=== PATIENT | female | born 1955 | race African-American/Black ===

== ENCOUNTER 2019-09-04 18:34 | Inpatient (IN) | payer MEDICAID ==
[~2019-09-04] VITALS: Ht 177.8 cm; Wt 33.6 kg
[2019-09-04] MEDS ORDERED: SODIUM CHLORIDE 0.9% 1,000 ML IV ONE (19:17)
[2019-09-04 20:10] LABS: BASOPHILS % 0.7 % (0.0-2.0); EOSINOPHILS % 0.6 % (0.0-5.0); HEMATOCRIT. 35.4 % (36.0-48.0); HEMOGLOBIN. 12.1 g/dL (12.0-16.0); LYMPHOCYTES % 48.3 % (20.0-50.0); MEAN CORPUSCULAR HEMOGLOBIN 31.2 pg (28.0-32.0); MEAN CORPUSCULAR VOLUME 90.8 fL (81.0-99.0); MEAN PLATELET VOLUME 10.3 fl (7.4-10.4); NEUTROPHILS % 42.4 % (40.0-76.0); PLATELET 105 x1000/uL (130-400); RED BLOOD CELL COUNT 3.89 mill/uL (4.2-5.4); RED CELL DISTRIBUTION WIDTH 16.3 % (11.6-14.6)
[2019-09-04 20:16] LABS: INR 1.1; PROTHROMBIN TIME 11.7 sec (9.6-11.0)
[2019-09-04 20:19] LABS: CHLORIDE 112 mEq/L (98-107)
[2019-09-04 20:23] LABS: ETHANOL BLOOD < 10 mg/dL
[2019-09-04 21:35] LABS: CLARITY URINE CLEAR (CLEAR); COLOR URINE YELLOW (YELLOW); KETONES URINE TRACE (NEGATIVE); LEUKOCYTE ESTERASE URINE NEGATIVE (NEGATIVE); NITRITE URINE NEGATIVE (NEGATIVE); OCCULT BLOOD URINE NEGATIVE (NEGATIVE); PH URINE 5.5 (4.5-8.0); PROTEIN URINE NEGATIVE (NEGATIVE); SPECIFIC GRAVITY URINE 1.024 (1.005-1.030)
[2019-09-04 21:54] LABS: *AMPHETAMINES SCREEN URINE NEGATIVE (NEGATIVE); *BARBITURATES SCREEN URINE NEGATIVE (NEGATIVE); *BENZODIAZEPINES SCREEN URINE NEGATIVE (NEGATIVE); *COCAINE SCREEN URINE NEGATIVE (NEGATIVE); METHADONE URINE SCREEN NEGATIVE (NEGATIVE); OPIATES URINE SCREEN NEGATIVE (NEGATIVE)
[2019-09-04 21:55] LABS: CANNABINOID URINE SCREEN NEGATIVE (NEGATIVE); PHENCYCLIDINE URINE SCREEN NEGATIVE (NEGATIVE)
[2019-09-04] MEDS ORDERED: DEXT 5%/0.45% NACL 1000ML 1,000 ML IV SCH (22:32)
[2019-09-04] MEDS ORDERED: ONDANSETRON HCL 4MG/2ML INJ IV PRN (22:45)
[2019-09-04] MEDS ORDERED: GUAIFENESIN 200MG/10ML SUGAR FREE UDC PO PRN (22:45)
[2019-09-04] MEDS ORDERED: HYDROCODONE/ACETAMINOPHEN 10/325MG TABLET PO PRN (22:45)
[2019-09-04] MEDS ORDERED: MAGNESIUM/ALUMINUM HYDROXIDE/SIMETHICONE 30ML UDC PO PRN (22:45)
[2019-09-04] MEDS ORDERED: DIPHENHYDRAMINE 50MG/ML VIAL IV PRN (22:45)
[2019-09-04] MEDS ORDERED: CLONIDINE 0.1MG TABLET PO PRN (22:45)
[2019-09-04] MEDS ORDERED: IPRATROPIUM/ALBUTEROL 0.5-3(2.5)MG/3ML NEB HHN PRN (22:45)
[2019-09-04] MEDS ORDERED: ACETAMINOPHEN 325MG TABLET PO PRN (22:45)
[2019-09-04] MEDS ORDERED: DOCUSATE SODIUM 100MG CAPSULE PO PRN (22:45)
[2019-09-04] MEDS ORDERED: LORAZEPAM 2MG/ML CPJ IV PRN ×2 (22:45)
[2019-09-04] MEDS ORDERED: MORPHINE SULFATE 2 MG/ML CPJ (NOT FOR IM USE) IV PRN (22:45)
[2019-09-04] MEDS ORDERED: HYDRALAZINE 20MG/ML VIAL IV PRN (22:45)
[2019-09-04] MEDS: LEVETIRACETAM 500MG PREMIX 100 ML IV SCH (23:05)
[2019-09-05 01:21] VITALS: BP 95/59
[2019-09-05 04:00] VITALS: BP 112/56
[2019-09-05] MEDS: SODIUM CHLORIDE 0.9% INJ 3ML FLUSH IVF SCH ×3 (05:15→21:11)
[2019-09-05 06:52] LABS: BASOPHILS % 0.6 % (0.0-2.0); EOSINOPHILS % 1.3 % (0.0-5.0); HEMOGLOBIN. 11.4 g/dL (12.0-16.0); MEAN CORPUSCULAR HEMOGLOBIN 31.3 pg (28.0-32.0); MEAN PLATELET VOLUME 11.4 fl (7.4-10.4); MONOCYTES % 10.1 % (2.0-8.0); PLATELET 106 x1000/uL (130-400); RED BLOOD CELL COUNT 3.63 mill/uL (4.2-5.4); RED CELL DISTRIBUTION WIDTH 16.2 % (11.6-14.6)
[2019-09-05 07:59] LABS: CHLORIDE 112 mEq/L (98-107)
[2019-09-05 08:00] VITALS: BP 125/62
[2019-09-05 08:10] LABS: CREATINE KINASE 208 IU/L (26-192)
[2019-09-05] MEDS: LEVETIRACETAM 500MG PREMIX 100 ML IV SCH ×2 (09:18→21:11)
[2019-09-05] MEDS: ENOXAPARIN 40MG/0.4ML SYR SUBCUT SCH (09:19)
[2019-09-05] MEDS ORDERED: PNEUMOCOCCAL 23-VAL P-SAC VAC 0.5 ML IM ONE (12:00)
[2019-09-05 12:24] VITALS: BP_SYST 126; BP_SYST 138; BP_DIAS 62; BP_DIAS 90
[2019-09-05 15:33] VITALS: BP 115/57
[2019-09-05 16:11] LABS: T4 FREE 1.18 ng/dL (0.76-1.46)
[2019-09-05 16:12] LABS: CREATINE KINASE 203 IU/L (26-192)
[2019-09-05 16:13] LABS: CREATINE KINASE MB FRACTION 1.5 ng/mL (0.5-3.6)
[2019-09-05 20:00] VITALS: BP 107/60
[2019-09-06 04:00] VITALS: BP 123/63
[2019-09-06] MEDS: SODIUM CHLORIDE 0.9% INJ 3ML FLUSH IVF SCH ×3 (06:34→20:31)
[2019-09-06 07:01] LABS: CHLORIDE 111 mEq/L (98-107)
[2019-09-06 07:09] LABS: BASOPHILS % 0.7 % (0.0-2.0); EOSINOPHILS % 1.7 % (0.0-5.0); HEMATOCRIT. 36.3 % (36.0-48.0); HEMOGLOBIN. 12.3 g/dL (12.0-16.0); LYMPHOCYTES % 56.8 % (20.0-50.0); MEAN CORPUSCULAR HEMOGLOBIN 31.2 pg (28.0-32.0); MEAN CORPUSCULAR VOLUME 91.8 fL (81.0-99.0); MEAN PLATELET VOLUME 10.9 fl (7.4-10.4); MONOCYTES % 9.8 % (2.0-8.0); PLATELET 92 x1000/uL (130-400); RED BLOOD CELL COUNT 3.96 mill/uL (4.2-5.4); RED CELL DISTRIBUTION WIDTH 16.4 % (11.6-14.6)
[2019-09-06 07:11] LABS: VITAMIN B12 SERUM 782 pg/mL (211-911)
[2019-09-06 08:00] VITALS: BP 96/57
[2019-09-06] MEDS: LEVETIRACETAM 500MG PREMIX 100 ML IV SCH (10:45)
[2019-09-06] MEDS: ENOXAPARIN 40MG/0.4ML SYR SUBCUT SCH (10:46)
[2019-09-06 12:00] VITALS: BP 161/83
[2019-09-06 16:00] VITALS: BP 120/65
[2019-09-06 20:00] VITALS: BP 146/66
[2019-09-06] MEDS: LEVETIRACETAM 500MG TABLET PO SCH (20:31)
[2019-09-07] VITALS: BP 132/74
[2019-09-07 04:00] VITALS: BP 123/63
[2019-09-07] MEDS: SODIUM CHLORIDE 0.9% INJ 3ML FLUSH IVF SCH (05:34)
[2019-09-07 08:00] VITALS: BP 106/68
[2019-09-07] MEDS ORDERED: ENOXAPARIN 30MG/0.3ML SYR SUBCUT SCH (09:00)
[2019-09-07] MEDS: LEVETIRACETAM 500MG TABLET PO SCH (09:11)
[2019-09-07 12:00] VITALS: BP 96/53
[2019-09-07 14:09] VITALS: BP 96/53
== END 2019-09-07 15:20 | disposition home or self-care (01) | DRG 347 ==
LOC: ER 18:34 → MICUSO 22:16 → 6WST 09-05 00:35
PROVIDERS: ADMIT Internal Medicine; ATTEND Internal Medicine
DX: M48.02 Spinal stenosis, cervical region (principal); D69.6 Thrombocytopenia, unspecified; G93.89 Other specified disorders of brain; G40.909 Epilepsy, unspecified, not intractable, without status epilepticus; G25.2 Other specified forms of tremor; F17.210 Nicotine dependence, cigarettes, uncomplicated; R00.1 Bradycardia, unspecified; I25.10 Atherosclerotic heart disease of native coronary artery without angina pectoris; M47.892 Other spondylosis, cervical region; I25.2 Old myocardial infarction; Z86.73 Personal history of transient ischemic attack (TIA), and cerebral infarction without residual deficits
CPT/HCPCS: 36415; 70551; 71045; 72141; 76536; 80048; 80053; 80061; 80305; 80320; 81003; 82550; 82553; 82607; 83036; 83735; 83880; 84439; 84443; 84484; 85025; 85379; 93005; 93306; 93970; 96365; 97116; 97162; 99291; J1650; J1953; J7030; G0480

== ENCOUNTER 2022-03-02 13:02 | Emergency (ER) | payer MEDICAID, OTHER ==
[~2022-03-02] VITALS: Ht 165.1 cm; Wt 50.0 kg
[2022-03-02 14:23] LABS: BASOPHILS % 0.6 % (0.0-2.0); EOSINOPHILS % 0.5 % (0.0-5.0); HEMATOCRIT. 36.6 % (36.0-48.0); HEMOGLOBIN. 12.2 g/dL (12.0-16.0); LYMPHOCYTES % 31.3 % (20.0-50.0); MEAN CORPUSCULAR HEMOGLOBIN 30.7 pg (28.0-32.0); MEAN CORPUSCULAR VOLUME 92.5 fL (81.0-99.0); MEAN PLATELET VOLUME 10.8 fl (7.4-10.4); MONOCYTES % 8.4 % (2.0-8.0); NEUTROPHILS % 59.2 % (40.0-76.0); PLATELET 152 x1000/uL (130-400); RED BLOOD CELL COUNT 3.95 mill/uL (4.2-5.4); RED CELL DISTRIBUTION WIDTH 16.7 % (11.6-14.6)
[2022-03-02 14:30] LABS: PROTHROMBIN TIME 10.8 sec (9.6-11.0)
[2022-03-02 14:33] LABS: CHLORIDE 111 mEq/L (98-107)
[2022-03-02] MEDS ORDERED: IOHEXOL-350 100 ML BOTTLE ONE (15:39)
[2022-03-02 20:37] VITALS: BP 110/60
== END 2022-03-02 22:02 | disposition short-term general hospital (02) ==
LOC: ER 13:20 → CANBEDREQ 16:13 → ER 22:02
DX: R25.1 Tremor, unspecified (principal); Z86.73 Personal history of transient ischemic attack (TIA), and cerebral infarction without residual deficits; Z20.822 Contact with and (suspected) exposure to COVID-19
CPT/HCPCS: 36415; 70450; 70496; 80053; 82962; 84484; 85025; 85610; 87426; 93005; 99285; C9803; Q9967